=== PATIENT | female | born 1940 | race Caucasian/White ===

== ENCOUNTER 2016-11-01 10:13 | Inpatient (IN) | payer OTHER ==
[~2016-11-01] VITALS: Ht 152.4 cm; Wt 76.0 kg
[2016-11-01] MEDS ORDERED: VANCOMYCIN 1 GM (PMX) 250 ML IVPB STA (10:37)
[2016-11-01] MEDS ORDERED: PIPER-TAZO 3.375 GM IV (PMX) 100 ML IVPB STA (10:37)
[2016-11-01] MEDS ORDERED: SODIUM CHLORIDE 0.9% 1L BAG IV* STA (10:37)
[2016-11-01] MEDS ORDERED: METHYLPREDNISOLONE 125 MG INJ IV STA (10:58)
[2016-11-01] MEDS ORDERED: ALBUTEROL 0.5% (NEB) 2.5 MG/0.5 ML AMP INH STA (10:58)
[2016-11-01] MEDS ORDERED: IPRATROPIUM (NEB) 0.5 MG/2.5 ML AMP INH STA (10:58)
--- NOTE | 2016-11-01 10:58 | ERA ---
ER Documentation Chief Complaint Date/Time DATE: 11/01/16 TIME: 10:58 Chief Complaint pt bib family with c/o cough, and shortness of breath, HPI This is a 76-year-old female presents to the emergency department complaining of severe difficulty in breathing, productive cough, that has progressively worsened over the past 48 hours. The patient went to an urgent care clinic yesterday and was diagnosed with acute bronchitis with no radiographic imaging. She had been placed on azithromycin and prednisone and albuterol inhaler. She indicates she had a similar episode one year ago and was diagnosed with potential asthma versus anxiety versus allergies and has had no definitive pulmonary function tests to specifically diagnose asthma or emphysema. The patient does not smoke tobacco and denies any recent travel or prolonged immobilization. She has no shortness of breath at rest or exertion. She denies a tactile fever shaking or chills. She has no chest pain or pressure that radiates to the neck or back or jaw. She indicates she is utilize the albuterol inhaler several times over the past 24 hours with no improvement of her symptoms. Her cough worsens at night. ROS All systems reviewed and are negative except as per history of present illness. Medications Home Meds No Active Prescriptions or Reported Meds Allergies Allergies: Coded Allergies: No Known Allergy (Unverified , 11/01/16) Physical Exam Vitals Vital Signs Date Time Temp Pulse Resp B/P Pulse Ox O2 Delivery O2 Flow Rate FiO2 11/01/16 11:53 78 18 98 21 11/01/16 10:25 100.0 101 18 146/91 93 Physical Exam Constitutional:Well-developed. Well-nourished. In severe respiratory distress HEENT:Normocephalic. Atraumatic.Pupils were equal round reactive to light. Moist mucous membranes.No tonsillar exudates. Neck: No nuchal rigidity. No lymphadenopathy. No posterior cervical spine tenderness or step-offs. Respiratory: Not using accessory muscles of respiration. Wheezing on inspiratory respiration bilaterally. Patient able to speak in full complete sentences without any shortness of breath Cardiovascular: Regular rate regular rhythm.No murmurs. No rubs were appreciated.S1, S2 normal. Distal pulses are palpable 2+ bilaterally. GI: Abdomen was soft. Nontender. Non Distended. No pulsatile abdominal masses or bruits. No rebound. No guarding. Bowel sounds were present and normal. Muscle skeletal: Full range of motion of both the upper and lower extremities bilaterally.Normal muscle tone.No assymetrical calf tenderness or swelling. Skin: No petechia, no purpura. No lesions on the palms or the soles of the feet. No maculopapular rash. NEURO: Patient was alert, awake, orientated x3.No facial droop. Gait observed and normal with no ataxia.Speech had regular rate and rhythm. No focal neurological deficits. Result Diagram: 11/01/16 1056 11/01/16 1056 Results 24 hrs Laboratory Tests Test 11/01/16 10:56 11/01/16 10:58 Activated Partial Thromboplast Time 29.8Sec Alanine Aminotransferase (ALT/SGPT) 34IU/L Albumin 4.4g/dl Albumin/Globulin Ratio 1.10 Alkaline Phosphatase 112IU/L Amylase Level 79U/L Anion Gap 20 Aspartate Amino Transf (AST/SGOT) 29IU/L B-Type Natriuretic Peptide 80PG/ML Basophils # 0.010^3/ul Basophils % 0.5% Blood Urea Nitrogen 11mg/dl Calcium Level 9.2mg/dl Carbon Dioxide Level 23mmol/L Chloride Level 107mmol/L Creatinine 0.65mg/dl Direct Bilirubin 0.00mg/dl Eosinophils # 0.410^3/ul Eosinophils % 6.2% Globulin 4.00g/dl Glucose Level 124mg/dl Hematocrit 41.4% Hemoglobin 14.1g/dl INR International Normalized Ratio 0.93 Indirect Bilirubin 0.2mg/dl Lactic Acid Level 2.5mmol/L Lipase 59U/L Lymphocytes # 1.810^3/ul Lymphocytes % 29.2% Mean Corpuscular Hemoglobin 30.5pg Mean Corpuscular Hemoglobin Concent 34.1g/dl Mean Corpuscular Volume 89.2fl Mean Platelet Volume 8.3fl Monocytes # 0.310^3/ul Monocytes % 5.3% Neutrophils # 3.610^3/ul Neutrophils % 58.8% Nucleated Red Blood Cells # 0.010^3/ul Nucleated Red Blood Cells % 0.0/100WBC Platelet Count 14442^3/UL Potassium Level 4.1mmol/L Prothrombin Time 12.5Sec Prothrombin Time Ratio 1.0 Red Blood Count 4.6410^6/ul Red Cell Distribution Width 13.8% Sodium Level 146mmol/L Total Bilirubin 0.2mg/dl Total Protein 8.4g/dl Troponin I < 0.012ng/ml White Blood Count 6.010^3/ul Arterial Blood HCO3 23.1mmol/L Arterial Blood Base Excess 0.2mmol/L Arterial Blood Oxygen Saturation 94.4mmHG Markie Test ACCEPTAB Arterial Blood Gas Puncture Site Right Radial Arterial Blood Carboxyhemoglobin 0.3% Arterial Blood Date Drawn 11/01/2016 11:20:34 AM Arterial Blood Methemoglobin 0.1% Arterial Blood pCO2 (Temp correct) 32.6mmhg Arterial Blood pH (Temp corrected) 7.468 Arterial Blood pO2 (Temp corrected) 67.8mmHG Blood Gas A-a O2 Differential 42.9mmHg Blood Gas Modality ROOM AIR Blood Gas Notified Time 11/01/2016 11:33:05 AM Blood Gas Notified Whom JLD Blood Gas Specimen Source Blood arterial Blood Gas Temperature 37.0C FiO2 21.0% Oxyhemoglobin Percent 94.0% Total Hemoglobin 14.7g/dl Current Medications Medications (Trade) Dose Ordered Sig/Belkis Route PRN Reason Start Time Stop Time Status Last Admin Dose Admin Sodium Chloride 2360 ml 2,360 ml BOLUS OVER 2 HOURS STAT IV* 11/01/16 10:37 11/01/16 10:42 DC 11/01/16 11:35 Vancomycin HCl 250 ml @ 125 mls/hr ONCE STAT IVPB 11/01/16 10:37 11/01/16 12:36 DC 11/01/16 11:36 Piperacillin Sod/ Tazobactam Sod (Zosyn 3.375gm/ 100 ml (Pmx)) 100 ml @ 200 mls/hr ONCE STAT IVPB 11/01/16 10:37 11/01/16 11:06 DC 11/01/16 11:35 Albuterol (Proventil 0.5% (Neb)) 10 mg ONCE STAT INH 11/01/16 10:58 11/01/16 11:00 DC 11/01/16 11:52 Ipratropium Mulga (Atrovent 0.02% (Neb)) 1 mg ONCE STAT INH 11/01/16 10:58 11/01/16 11:00 DC 11/01/16 11:52 Methylprednisolone Sodium Succinate (Solu-Medrol) 125 mg ONCE STAT IV 11/01/16 10:58 11/01/16 11:00 DC 11/01/16 11:36 Ondansetron HCl (Zofran Odt) 4 mg ONCE STAT ODT 11/01/16 11:00 11/01/16 11:01 DC 11/01/16 11:36 Procedures/MDM The patient presented to the emergency department with dyspnea. My differential diagnosis included but was not limited to upper airway obstruction, CHF, pulmonary embolism, cardiac ischemia, pneumonia, pneumothorax, anemia, drug overdose, pulmonary edema, COPD or asthma. The patient was placed in a electrophysiology nurse practitioner continuous pulse oximetry and IV access was established by nursing staff. The patient received continuous nebulizer treatments of albuterol Atrovent and had been given 125 mg of Solu- Medrol. 12 Lead EKG tracing ordered and reviewed by myself showed: Normal sinus rhythm of 84 bpm and no arrhythmia. [place] interval normal. QRS duration normal. No ST segment elevation No ST segment depression. No changes consistent with acute ischemia. When the patient arrived she had sirs criteria and therefore blood cultures and urine culture was obtained and the patient was started on broad-spectrum antibiotics after cultures for suspected pneumonia. She was given IV vancomycin and Zosyn. She was also given a fluid bolus of 30 cc/kg. Patient's infectious symptoms have not stabilized and the patient is at risk of rapid decompensation. The patient will be admitted for careful hydration, antibiotic therapy, and infectious source control. Severe Sepsis Assessment: Infectious Source: Patient's infectious symptoms have not stabilized and the patient is at risk of rapid decompensation. The patient will be admitted for careful hydration, antibiotic therapy, and infectious source control. Severe Sepsis Assessment: Infectious Source: Pneumonia End organ damage indicated by: Lactate > 2.0 mmol/L Acute Resp Failure (sat < 92% w/o oxygen) Severe Sepsis Managment: Blood Cultures X 2 before broad spectrum antibiotics initiated within 3 hours of recognition. 30 ml/kg NS bolus Completed Initial Lactate: 2.5 Repeat Lactate pending Critical Care: Septic Shock Assessment (1 hour post 30 ml/kg fluid bolus): Hypotension (SBP < 90 or 40 mmHg drop, MAP < 65): No Lactic acid > 4.0 No I considered further perfusion assessment with CVP measurement, SCVO2, bedside ultrasound volume assessment, passive leg raise, trial of further fluid bolus. And preceded with IV fluids 12 Lead EKG tracing ordered and reviewed by myself showed: Normal sinus rhythm of 84 bpm and no arrhythmia. [place] interval normal. QRS duration normal. No ST segment elevation No ST segment depression. No changes consistent with acute ischemia. I obtained a chest radiograph which showed right lower lobe atelectasis versus an early pneumonia given the patient's symptoms I did feel this would likely result of an infectious process and the patient will require admission to the hospital. The patient received continuous nebulizer treatments of albuterol Atrovent had also been given 125 mg of Solu-Medrol as she had significant respiratory distress when she initially arrived. After receiving a continuous nebulizer treatment her wheezing had completely resolved. She no longer was in severe respiratory distress and the patient will be admitted in serious condition to the telemetry service under the care of Dr. Christopher with an anticipated stay of greater than 2 midnights. Critical Care: Time: 45 minutes Treatments/Evaluations: Close monitoring and treatment of unstable vital signs, cardiorespiratory, and neurologic status, while maintaining tight balance of fluid, respiratory, and cardiac interventions. Departure Diagnosis: Primary Impression: Pneumonia Additional Impression: Sepsis Condition: Serious RANJIT CORONA Nov 01, 2016 10:58
[2016-11-01] MEDS ORDERED: ONDANSETRON (ODT) 4 MG TAB ODT STA (11:00)
[2016-11-01 11:17] LABS: BASOPHILS % 0.5 % (0.0-2.0); EOSINOPHILS # 0.4 10^3/ul (0.0-0.5); EOSINOPHILS % 6.2 % (0.0-7.0); HEMATOCRIT 41.4 % (37.0-47.0); HEMOGLOBIN 14.1 g/dl (12.0-16.0); LYMPHOCYTES # 1.8 10^3/ul (0.8-2.9); LYMPHOCYTES % 29.2 % (15.0-51.0); MEAN CORPUSCULAR HEMOGLOBIN 30.5 pg (29.0-33.0); MEAN CORPUSCULAR HGB CONC 34.1 g/dl (32.0-37.0); MEAN CORPUSCULAR VOLUME 89.2 fl (82.0-101.0); MEAN PLATELET VOLUME 8.3 fl (7.4-10.4); MONOCYTE # 0.3 10^3/ul (0.3-0.9); MONOCYTES % 5.3 % (0.0-11.0); NEUTROPHIL # 3.6 10^3/ul (1.6-7.5); NEUTROPHILS % 58.8 % (39.0-77.0); PLATELET COUNT 271 10^3/UL (140-440); RED BLOOD COUNT 4.64 10^6/ul (4.20-5.40); RED CELL DISTRIBUTION WIDTH 13.8 % (11.5-14.5)
[2016-11-01 11:18] LABS: CONDITION 1
[2016-11-01 11:27] LABS: INR 0.93; PROTIME 12.5 Sec (12.2-14.2)
[2016-11-01 11:28] LABS: ALBUMIN 4.4 g/dl (3.3-4.9); PARTIAL THROMBOPLASTIN TIME 29.8 Sec (25.0-35.0)
[2016-11-01 11:29] LABS: CHLORIDE 107 mmol/L (97-110); POTASSIUM 4.1 mmol/L (3.5-5.1); SODIUM 146 mmol/L (135-144)
[2016-11-01 11:31] LABS: AMYLASE 79 U/L (11-123); ANION GAP 20 (8-16); BILIRUBIN,INDIRECT 0.2 mg/dl (0-1.1); BILIRUBIN,TOTAL 0.2 mg/dl (0.2-1.3); CARBON DIOXIDE 23 mmol/L (21-31); CREATININE 0.65 mg/dl (0.44-1.00)
[2016-11-01 11:32] LABS: ALANINE AMINOTRANSFERASE 34 IU/L (13-69); ALKALINE PHOSPHATASE 112 IU/L (42-121); ASPARTATE AMINO TRANSFERASE 29 IU/L (15-46); BLOOD UREA NITROGEN 11 mg/dl (7-20); CALCIUM 9.2 mg/dl (8.4-10.2); GLUCOSE 124 mg/dl (70-220); TOTAL PROTEIN 8.4 g/dl (6.1-8.1)
[2016-11-01 11:33] LABS: AADO2 Arterial 42.9 mmHg (7.0-24.0); Allen Test ACCEPTAB; Arterial Base Excess 0.2 mmol/L (-3.0-3); Arterial COHb 0.3 % (0.0-3.0); Arterial HCO3 23.1 mmol/L (22.0-26.0); Arterial MetHb 0.1 % (0.0-1.5); Arterial Total Hemglobin 14.7 g/dl (12.0-18.0); MODE ROOM AIR
[2016-11-01 11:43] LABS: TROPONIN-I < 0.012 ng/ml (0.00-0.12)
--- NOTE | 2016-11-01 12:16 | RADRPT ---
PROCEDURE: XR Chest. CLINICAL INDICATION: Possible sepsis. TECHNIQUE: Single frontal view of the chest was obtained. COMPARISON: None. FINDINGS: Cardiomediastinal silhouette appears normal There is a aortic atherosclerosis. Pulmonary vasculature appears normal. Minimal right lower lobe subsegmental atelectasis. Costophrenic angles are well defined. The osseous elements appear intact. IMPRESSION: 1. Minimal right lower lobe subsegmental atelectasis. 2. Aortic atherosclerosis. RPTAT: [facility] Physician Juan Carlos Date Time Electronically viewed and signed by Nadir Bass Physician on 11/01/2016 12:16 /
[2016-11-01] MEDS ORDERED: ALBUTEROL/IPRATROPIUM (NEB) 3 ML AMP HHN PRN (13:30)
[2016-11-01] MEDS ORDERED: NACL 0.9% 3 ML SYG IV SCH (13:30)
[2016-11-01] MEDS ORDERED: ACETAMINOPHEN 650 MG SUPP PR PRN (13:30)
[2016-11-01] MEDS ORDERED: ONDANSETRON 4 MG TAB PO PRN (13:30)
[2016-11-01] MEDS: CEFTRIAXONE 1 GM/50 ML (PMX) 50 ML IVPB SCH (13:30)
[2016-11-01] MEDS: AZITHROMYCIN 250 MG in SOD CHLORIDE 0.9% 250 ML IVPB SCH (13:30)
[2016-11-01] MEDS ORDERED: ACETAMINOPHEN 325 MG TAB PO PRN ×2 (13:30)
[2016-11-01] MEDS ORDERED: DOCUSATE SODIUM 100 MG CAP PO PRN (13:30)
[2016-11-01] MEDS ORDERED: ONDANSETRON 4 MG INJ IV PRN (13:30)
[2016-11-01] MEDS: METHYLPREDNISOLONE 40 MG INJ IV SCH ×2 (14:00→22:55)
[2016-11-01] MEDS ORDERED: GUAIFENESIN 20 MG/ML 5ML CUP PO PRN (17:00)
--- NOTE | 2016-11-01 17:43 | HP ---
DATE OF ADMISSION: 11/01/2016 STICK WELDER: None. CHIEF COMPLAINT: Cough and congestion. HISTORY OF PRESENT ILLNESS: This is a 76-year-old female with past medical history of hypertension and asthma who presents to [facility] secondary to having 7 days of cough and megan estion with exacerbation of cough for the past 2 days. The patient was seen and evaluated by her [facility] physician and was prescribed azithromycin and Singulair, which she took only for 1 day an d came to emergency room the following day secondary to stating the medication has not helped. Upon arrival to emergency room, patient was found to have temperature 100, pulse 101, respiration 18, bl ood pressure 146/91, oxygen 98% in room air. Patient was treated with acetaminophen, Zofran, vancom ycin, Zosyn and Solu-Medrol, breathing treatment via DuoNeb and normal saline. At this time, the pa hodanollie stated that she is feeling a lot better and the breathing treatment has helped her breathing s tatus. PAST MEDICAL AND SURGICAL HISTORY: 1. Hypertension. 2. Asthma. MEDICATIONS: 1. Singular. 2. Azithromycin. 3. Norvasc. ALLERGIES: NO KNOWN DRUG ALLERGIES. FAMILY HISTORY: Noncontributory. SOCIAL HISTORY: Negative x3 for smoking, alcohol, illicit drugs. Lives at home with her son. REVIEW OF SYSTEMS: Presently for fever, no chills, no weight gain, no anorexia. Positive for short ness of breath, cough and congestion. No chest pain, no palpitations, edema, orthopnea. No change in visual acuity, diplopia, photophobia. No neck pain, no restricted range of motion in her neck. No upper or lower extremity pain. No hematuria, dysuria, urgency, incontinence. No abdominal disco mfort. A 12 review of systems has been found to be negative. PHYSICAL EXAMINATION: VITAL SIGNS: Temperature 98, pulse 85, respiration 18, blood pressure 141/70, oxygen saturation 98% . GENERAL APPEARANCE: The patient is lying in bed comfortably without any distress. She is awake, al ert, oriented. She is able to answer my questions properly. EYES AND ENT: Conjunctivae and lids are normal. Lids are normal. Extraocular normal. Hearing yang ssly normal. Lips are normal. Oral mucosa is moist. NECK: Supple. Trachea is midline. No lymphadenopathy. RESPIRATORY: Effort is normal. Clear to auscultation bilaterally. CARDIOVASCULAR: Normal S1, S2. Regular rhythm and rate. No murmur, no bruits, no edema. Peripher al pulses and radial pulses palpable. Capillary refill is normal. RESPIRATORY: Effort is normal. There is bilateral upper lung wheezing. No crackles, no rales, no r honchi. CARDIOVASCULAR: Normal S1, S2. Regular rhythm and rate. No murmur, no bruits, no edema. Peripher al pulses, radial pulses palpable. Cap refill is normal. CHEST: Normal expansion of thorax during inspiration. GASTROINTESTINAL: Abdomen is soft, nontender, not distended. Bowel sounds present. No guarding, r ebound. GENITOURINARY: Deferred. MUSCULOSKELETAL: Upper and lower extremities within normal limits. Full range of motion, strength 5/5 in both upper and lower extremities. NEUROLOGIC: Cranial nerves II through XII are grossly intact. PSYCHIATRIC: Normal judgment and insight. Alert and oriented x3. Mood and affect is normal. LABORATORY WORK AND IMAGING: WBC 6.3, hemoglobin 14.1, hematocrit 41.4, platelets 271. Sodium 146, potassium 4.1, chloride 107, bicarbonate 23, BUN 11, creatinine 0.65, glucose 124. Lactic acid 2.5 and 2.0. LFTs all within normal limits. BNP 80. Chest x-ray: No acute cardiopulmonary pathology or abnormality seen minimal right lower lobe subsegmental atelectasis, aortic sclerosis. ASSESSMENT AND PLAN: 1. Upper respiratory tract infection. Patient has been started on Rocephin, azithromycin, and yovana thing treatment. 2. Asthma exacerbation. Continue Singulair. The patient has been placed on breathing treatment, S yaakov-Medrol. 3. Essential hypertension. Continue Norvasc. 4. For deep venous thrombosis prophylaxis, on sequential compression devices. 5. For gastrointestinal prophylaxis, not indicated at this time. 6. We will continue to monitor patient closely. Further recommendations, management and treatment as per clinical course. Total amount of time was spent for evaluation of patient and admission workup 40 minutes. Dictated By: DAVE GAMBINO MD PN/NTS Conf#: [id number] DID#: [id number]
[2016-11-01] MEDS: AMLODIPINE 5 MG TAB PO SCH (18:27)
[2016-11-01] MEDS ORDERED: MONTELUKAST 5 MG TAB PO SCH (21:00)
[2016-11-01 21:30] VITALS: TEMP 98.4
[2016-11-01 23:00] VITALS: BP 154/84; PULSE 103; RESP 20
[2016-11-01 23:06] VITALS: Ht 152.4 cm; Wt 76.0 kg
[2016-11-02] VITALS (12 sets, daily range): BP systolic 135–160; BP diastolic 72–88; PULSE 85–100; RESP 16–20
[2016-11-02] MEDS: ZOLPIDEM 5 MG TAB PO PRN (02:37)
[2016-11-02] MEDS: PANTOPRAZOLE (EC) 40 MG TAB PO SCH (06:08)
[2016-11-02] MEDS: METHYLPREDNISOLONE 40 MG INJ IV SCH ×3 (06:08→22:19)
[2016-11-02 07:14] LABS: HEMATOCRIT 40.3 % (37.0-47.0); HEMOGLOBIN 13.7 g/dl (12.0-16.0); LYMPHOCYTES # 1.2 10^3/ul (0.8-2.9); LYMPHOCYTES % 9.7 % (15.0-51.0); MEAN CORPUSCULAR HEMOGLOBIN 30.6 pg (29.0-33.0); MEAN CORPUSCULAR VOLUME 90.1 fl (82.0-101.0); MEAN PLATELET VOLUME 8.9 fl (7.4-10.4); MONOCYTE # 0.2 10^3/ul (0.3-0.9); MONOCYTES % 1.2 % (0.0-11.0); NEUTROPHIL # 11.3 10^3/ul (1.6-7.5); NEUTROPHILS % 89.1 % (39.0-77.0); PLATELET COUNT 276 10^3/UL (140-440); RED BLOOD COUNT 4.48 10^6/ul (4.20-5.40); RED CELL DISTRIBUTION WIDTH 13.8 % (11.5-14.5); UNCORRECTED WBC 12.7 10^3/ul (4.8-10.8); WHITE BLOOD COUNT 12.7 10^3/ul (4.8-10.8)
[2016-11-02 07:15] LABS: CONDITION 1
[2016-11-02 07:30] LABS: POTASSIUM 3.9 mmol/L (3.5-5.1)
[2016-11-02 07:33] LABS: CALCIUM 9.3 mg/dl (8.4-10.2); CREATININE 0.63 mg/dl (0.44-1.00); MAGNESIUM 2.1 mg/dl (1.7-2.5)
[2016-11-02] MEDS: AMLODIPINE 5 MG TAB PO SCH (08:09)
[2016-11-02] MEDS: ENOXAPARIN 30 MG/0.3 ML SYG SC SCH (08:10)
--- NOTE | 2016-11-02 09:37 | PN ---
Date/Time of Note Date/Time of Note DATE: 11/02/16 TIME: 09:33 Assessment/Plan VTE Prophylaxis VTE Prophylaxis Intervention: other Lines/Catheters IV [facility]ter [facility] (from [facility]): Saline Lock Urinary Cath still in place: No Assessment/Plan Problems: (1) Bronchitis with asthma, acute Status: Acute Comment: She has no prior history of respiratory difficulties. However at this time she clearly has an asthmatic bronchitis. She is improving with the aggressive treatment. We will continue her on antibiotics. Please note she has never all the symptoms consistent with influenza and has received a flu vaccine. At this point since they did not do a flu check in our emergency room will discontinue the regular treatment as she is improved with treatment for routine bacterial infections (2) Essential hypertension Status: Acute Comment: The patient reports no prior history of this and this is a recent diagnosis from an urgent care center. This will need to be followed up as an outpatient for now she will continue on the blood pressure medications. Please note that this woman culturally is very stoic and strong (3) Sepsis Status: Resolved Qualifiers: Sepsis type: sepsis due to unspecified organism Qualified Code: A41.9 - Sepsis, due to unspecified organism Subjective 24 Hr Interval Summary Free Text/Dictation Charming but stoic female brushing her teeth at the sink. She offers no specific complaints. Please note in the history she reports that she has no known prior history of asthma until being advised of this at an urgent care center roughly in the last 30 days. She denies any specific medical problems at all Constitutional: no complaints Respiratory: shortness of breath (Improved), wheezing (Wheezing is improved) Cardiovascular: no complaints Gastrointestinal: no complaints Genitourinary: no complaints Exam/Review of Systems Vital Signs Vitals Vital Signs Date Time Temp Pulse Resp B/P Pulse Ox O2 Delivery O2 Flow Rate FiO2 11/02/16 08:12 97.0 87 19 142/74 98 11/01/16 23:00 Room Air 11/01/16 21:30 2.0 11/01/16 11:53 21 Intake and Output 11/01/16 11/01/16 11/02/16 15:00 23:00 07:00 Intake Total 500 ml Balance 500 ml Exam Constitutional: alert, oriented Respiratory: normal air movement, wheezing (Inspiratory and expiratory wheezing ) Cardiovascular: nl pulses, regular rate and rhythm Gastrointestinal: nl liver, spleen, non-tender, soft Results Result Diagram: 11/02/16 0615 11/02/16 0615 Results 24 hrs Laboratory Tests Test 11/01/16 10:56 11/01/16 10:58 11/01/16 14:10 11/01/16 17:10 Activated Partial Thromboplast Time 29.8 Alanine Aminotransferase (ALT/SGPT) 34 Albumin 4.4 Albumin/Globulin Ratio 1.10 Alkaline Phosphatase 112 Amylase Level 79 Anion Gap 20 H Aspartate Amino Transf (AST/SGOT) 29 B-Type Natriuretic Peptide 80 Basophils # 0.0 Basophils % 0.5 Blood Urea Nitrogen 11 Calcium Level 9.2 Carbon Dioxide Level 23 Chloride Level 107 Creatinine 0.65 Direct Bilirubin 0.00 Eosinophils # 0.4 Eosinophils % 6.2 Globulin 4.00 H Glucose Level 124 Hematocrit 41.4 Hemoglobin 14.1 INR International Normalized Ratio 0.93 Indirect Bilirubin 0.2 Lactic Acid Level 2.5 H 2.0 2.0 Lipase 59 Lymphocytes # 1.8 Lymphocytes % 29.2 Mean Corpuscular Hemoglobin 30.5 Mean Corpuscular Hemoglobin Concent 34.1 Mean Corpuscular Volume 89.2 Mean Platelet Volume 8.3 Monocytes # 0.3 Monocytes % 5.3 Neutrophils # 3.6 Neutrophils % 58.8 Nucleated Red Blood Cells # 0.0 Nucleated Red Blood Cells % 0.0 Platelet Count 271 Potassium Level 4.1 Prothrombin Time 12.5 Prothrombin Time Ratio 1.0 Red Blood Count 4.64 Red Cell Distribution Width 13.8 Sodium Level 146 H Total Bilirubin 0.2 Total Protein 8.4 H Troponin I < 0.012 White Blood Count 6.0 Arterial Blood HCO3 23.1 Arterial Blood Base Excess 0.2 Arterial Blood Oxygen Saturation 94.4 L Markie Test ACCEPTAB Arterial Blood Gas Puncture Site Right Radial Arterial Blood Carboxyhemoglobin 0.3 Arterial Blood Date Drawn 11/01/2016 11:20:34 AM Arterial Blood Methemoglobin 0.1 Arterial Blood pCO2 (Temp correct) 32.6 L Arterial Blood pH (Temp corrected) 7.468 H Arterial Blood pO2 (Temp corrected) 67.8 L Blood Gas A-a O2 Differential 42.9 H Blood Gas Modality ROOM AIR Blood Gas Notified Time 11/01/2016 11:33:05 AM Blood Gas Notified Whom ABRAN Blood Gas Specimen Source Blood arterial Blood Gas Temperature 37.0 FiO2 21.0 Oxyhemoglobin Percent 94.0 Total Hemoglobin 14.7 Test 11/02/16 06:15 Anion Gap 21 H Basophils # 0.0 Basophils % 0.0 Blood Urea Nitrogen 14 Calcium Level 9.3 Carbon Dioxide Level 20 L Chloride Level 108 Creatinine 0.63 Eosinophils # 0.0 Eosinophils % 0.0 Glucose Level 169 Hematocrit 40.3 Hemoglobin 13.7 Lymphocytes # 1.2 Lymphocytes % 9.7 L Magnesium Level 2.1 Mean Corpuscular Hemoglobin 30.6 Mean Corpuscular Hemoglobin Concent 34.0 Mean Corpuscular Volume 90.1 Mean Platelet Volume 8.9 Monocytes # 0.2 L Monocytes % 1.2 Neutrophils # 11.3 H Neutrophils % 89.1 H Nucleated Red Blood Cells # 0.0 Nucleated Red Blood Cells % 0.0 Platelet Count 276 Potassium Level 3.9 Red Blood Count 4.48 Red Cell Distribution Width 13.8 Sodium Level 145 H White Blood Count 12.7 #H Medications Medications Current Medications Ceftriaxone Sodium 50 ml @ 100 mls/hr Q24H IVPB ; Start 11/01/16 at 13:30 Azithromycin/ Sodium Chloride (Zithromax/NS) 250 ml @ 250 mls/hr Q24H IVPB Last administered on 11/01/16at 13:30; Admin Dose 250 MLS/HR; Start 11/01/16 at 13:30 Ondansetron HCl (Zofran Tab) 4 mg Q6H PRN PO NAUSEA AND/OR VOMITING; Start at 13:30 Acetaminophen (Tylenol Tab) 650 mg Q6H PRN PO PAIN LEVEL 1-3 OR FEVER Last administered on 11/01/16at 22:56; Admin Dose 650 MG; Start 11/01/16 at 13:30 Acetaminophen (Tylenol Supp) 650 mg Q6H PRN MT PAIN LEVEL 1-3 OR FEVER; Start 11/01/16 at 13:30 Docusate Sodium (Colace) 100 mg Q12H PRN PO CONSTIPATION; Start 11/01/16 at 13 :30 Pantoprazole (Protonix Tab) 40 mg DAILY@06 PO Last administered on 11/02/16at 06:08; Admin Dose 40 MG; Start 11/02/16 at 06:00 Enoxaparin Sodium (Lovenox) 30 mg DAILY SC Last administered on 11/02/16at 08: 10; Admin Dose 30 MG; Start 11/02/16 at 09:00 Methylprednisolone Sodium Succinate (Solu-Medrol) 40 mg Q8 IV Last administered on 11/02/16at 06:08; Admin Dose 40 MG; Start 11/01/16 at 14:00 Guaifenesin (Robitussin Liquid Cup) 100 mg Q4H PRN PO COUGH Last administered on 11/01/16at 23:02; Admin Dose 100 MG; Start 11/01/16 at 17:00 Amlodipine Besylate (Norvasc) 5 mg DAILY PO Last administered on 11/02/16at 08: 09; Admin Dose 5 MG; Start 11/01/16 at 17:00 Montelukast Sodium (Singulair) 5 mg HS PO Last administered on 11/01/16at 22:55 ; Admin Dose 5 MG; Start 11/01/16 at 21:00 Influenza Virus Vaccine (Fluzone) 0.5 ml ONCE ONCE IM* ; Start 11/04/16 at 09:00 ; Stop 11/04/16 at 09:01 Zolpidem Tartrate (Ambien) 5 mg HS PRN PO INSOMNIA Last administered on at 02:37; Admin Dose 5 MG; Start 11/02/16 at 02:30 TIFFANY TAFOYA MD Nov 02, 2016 09:37
[2016-11-02] MEDS: SALMETEROL/FLUTICASONE 250/50 INHA INH SCH ×2 (11:44→22:06)
[2016-11-02] MEDS: CEFTRIAXONE 1 GM/50 ML (PMX) 50 ML IVPB SCH (13:40)
[2016-11-02] MEDS: AZITHROMYCIN 250 MG in SOD CHLORIDE 0.9% 250 ML IVPB SCH (15:16)
[2016-11-02] MEDS: MONTELUKAST 10 MG TAB PO SCH (20:49)
[2016-11-03] MEDS: PANTOPRAZOLE (EC) 40 MG TAB PO SCH (05:46)
[2016-11-03] MEDS: METHYLPREDNISOLONE 40 MG INJ IV SCH ×3 (05:46→21:39)
[2016-11-03 07:45] VITALS: BP 135/82; PULSE 92; RESP 18
[2016-11-03] MEDS: SALMETEROL/FLUTICASONE 250/50 INHA INH SCH ×2 (08:11→20:07)
[2016-11-03] MEDS: AMLODIPINE 5 MG TAB PO SCH (08:11)
[2016-11-03] MEDS: ENOXAPARIN 30 MG/0.3 ML SYG SC SCH (08:13)
--- NOTE | 2016-11-03 11:41 | PN ---
Date/Time of Note Date/Time of Note DATE: 11/03/16 TIME: 11:40 Assessment/Plan VTE Prophylaxis VTE Prophylaxis Intervention: LMWH Lines/Catheters IV C[facility] Type [facility] Saline Lock Urinary Cath still in place: No Assessment/Plan Problems: (1) Bronchitis with asthma, acute Status: Acute Comment: Patient has improved significantly and is almost at the point of being ready for discharge. I am not personally comfortable discharging her yet and the patient is not comfortable yet. Plan is for discharge in the morning assuming everything goes well. (2) Essential hypertension Status: Acute Comment: Well-controlled Subjective 24 Hr Interval Summary Constitutional: improved Respiratory: cough (Reports cough with white sputum but this is decreasing.) Cardiovascular: no complaints Gastrointestinal: no complaints Exam/Review of Systems Vital Signs Vitals Vital Signs Date Time Temp Pulse Resp B/P Pulse Ox O2 Delivery O2 Flow Rate FiO2 11/03/16 07:45 98.7 92 18 135/82 92 Room Air 11/01/16 21:30 2.0 11/01/16 11:53 21 Intake and Output 11/02/16 11/02/16 11/03/16 15:00 23:00 07:00 Intake Total 1020 ml 360 ml Balance 1020 ml 360 ml Exam Constitutional: alert, oriented Respiratory: clear to auscultation, normal air movement Cardiovascular: nl pulses, regular rate and rhythm Gastrointestinal: nl liver, spleen, non-tender, soft Extremities: normal pulses Results Result Diagram: 11/02/16 0615 11/02/16 0615 Medications Medications Current Medications Ceftriaxone Sodium 50 ml @ 100 mls/hr Q24H IVPB Last administered on at 13:40; Admin Dose 100 MLS/HR; Start 11/01/16 at 13:30 Azithromycin/ Sodium Chloride (Zithromax/NS) 250 ml @ 250 mls/hr Q24H IVPB Last administered on 11/02/16at 15:16; Admin Dose 250 MLS/HR; Start 11/01/16 at 13:30 Ondansetron HCl (Zofran Tab) 4 mg Q6H PRN PO NAUSEA AND/OR VOMITING; Start at 13:30 Acetaminophen (Tylenol Tab) 650 mg Q6H PRN PO PAIN LEVEL 1-3 OR FEVER Last administered on 11/01/16at 22:56; Admin Dose 650 MG; Start 11/01/16 at 13:30 Acetaminophen (Tylenol Supp) 650 mg Q6H PRN [place] PAIN LEVEL 1-3 OR FEVER; Start 11/01/16 at 13:30 Docusate Sodium (Colace) 100 mg Q12H PRN PO CONSTIPATION; Start 11/01/16 at 13 :30 Pantoprazole (Protonix Tab) 40 mg DAILY@06 PO Last administered on 11/03/16 05: 46; Admin Dose 40 MG; Start 11/02/16 at 06:00 Enoxaparin Sodium (Lovenox) 30 mg DAILY SC Last administered on 11/03/16 08:13 ; Admin Dose 30 MG; Start 11/02/16 at 09:00 Methylprednisolone Sodium Succinate (Solu-Medrol) 40 mg Q8 IV Last administered on 11/03/16 05:46; Admin Dose 40 MG; Start 11/01/16 at 14:00 Guaifenesin (Robitussin Liquid Cup) 100 mg Q4H PRN PO COUGH Last administered on 11/01/16at 23:02; Admin Dose 100 MG; Start 11/01/16 at 17:00 Amlodipine Besylate (Norvasc) 5 mg DAILY PO Last administered on 11/03/16 08:11 ; Admin Dose 5 MG; Start 11/01/16 at 17:00 Influenza Virus Vaccine (Fluzone) 0.5 ml ONCE ONCE IM* ; Start 11/04/16 at 09:00 ; Stop 11/04/16 at 09:01 Zolpidem Tartrate (Ambien) 5 mg HS PRN PO INSOMNIA Last administered on at 02:37; Admin Dose 5 MG; Start 11/02/16 at 02:30 Montelukast Sodium (Singulair) 10 mg HS PO Last administered on 11/02/16at 20: 49; Admin Dose 10 MG; Start 11/02/16 at 21:00 Salmeterol Xinafoate/ Fluticasone (Advair 250/50 Diskus) 1 inh BID INH Last administered on 11/03/16 08:11; Admin Dose 1 INH; Start 11/02/16 at 10:30 TIFFANY TAFOYA MD Nov 03, 2016 11:41
[2016-11-03] MEDS: CEFTRIAXONE 1 GM/50 ML (PMX) 50 ML IVPB SCH (13:57)
[2016-11-03] MEDS: AZITHROMYCIN 250 MG in SOD CHLORIDE 0.9% 250 ML IVPB SCH (14:34)
[2016-11-03 19:53] VITALS: BP 127/59; RESP 18
[2016-11-03] MEDS: MONTELUKAST 10 MG TAB PO SCH (20:07)
[2016-11-03] MEDS: ZOLPIDEM 5 MG TAB PO PRN (21:39)
[2016-11-04] MEDS: PANTOPRAZOLE (EC) 40 MG TAB PO SCH (05:45)
[2016-11-04] MEDS: METHYLPREDNISOLONE 40 MG INJ IV SCH ×2 (05:45→13:09)
[2016-11-04 08:10] VITALS: BP 139/68; RESP 20
[2016-11-04] MEDS: SALMETEROL/FLUTICASONE 250/50 INHA INH SCH (08:33)
[2016-11-04] MEDS: AMLODIPINE 5 MG TAB PO SCH (08:33)
[2016-11-04] MEDS: ENOXAPARIN 30 MG/0.3 ML SYG SC SCH (08:35)
[2016-11-04] MEDS ORDERED: INFLUENZA VIRUS VACCINE 0.5 ML SYG IM* ONE (09:00)
[2016-11-04] MEDS: CEFTRIAXONE 1 GM/50 ML (PMX) 50 ML IVPB SCH (13:09)
[2016-11-04] MEDS: AZITHROMYCIN 250 MG in SOD CHLORIDE 0.9% 250 ML IVPB SCH (14:55)
[2016-11-04] MEDS ORDERED: AMLO-145 PO (16:17)
[2016-11-04] MEDS ORDERED: ALBU90AE INHALATION (16:17)
[2016-11-04] MEDS ORDERED: LEVO500T10 PO (16:17)
--- NOTE | 2016-11-04 16:18 | PDOCDIS ---
Discharge Instructions CONDITION Patient Condition: Stable HOME CARE INSTRUCTIONS: Diet Instructions: Regular ACTIVITY: Activity Restrictions: No Restrictions FOLLOW UP/APPOINTMENTS Appointments follow-up with primary care doctor OTHER ORDERS: Other Orders: call 911 and go to the nearest ER if you develop chest pain, shortness of breath , fever, chills KOBY MACK MD Nov 04, 2016 16:18
[2016-11-04] MEDS ORDERED: SENN-53 PO (16:40)
== END 2016-11-04 18:25 | disposition home or self-care (01) | DRG 872 ==
LOC: E/R 10:13 → TEL 13:22 → PP2 11-02 17:47
PROVIDERS: ADMIT Family Medicine; ATTEND Family Medicine
DX: A41.9 Sepsis, unspecified organism (principal); J45.901 Unspecified asthma with (acute) exacerbation; I10 Essential (primary) hypertension; J06.9 Acute upper respiratory infection, unspecified
CPT/HCPCS: 36600; 71010; 80048; 80053; 82150; 82803; 83605; 83690; 83735; 83880; 84484; 85025; 85610; 85730; 87040; 90686; 94664; 96374; 96375; J0456; J0696; J1650; J2543; J2920; J2930; J3370; J7030; J7050